=== PATIENT | female | born 1995 ===

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

== ENCOUNTER 2017-05-18 15:59 | Emergency (ER) | payer OTHER ==
[2017-05-18 16:40] VITALS: BP 111/58
[2017-05-18] MEDS ORDERED: Ibuprofen TAB* 400 MG PO ONE (16:49)
--- NOTE | 2017-05-18 16:55 | UC ---
Hand/Wrist HPI - HPI Summary HPI Summary: Pt c/o right thumb pain and swelling. 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 - History Of Current Complaint Hx Obtained From: Patient Hx Last Menstrual Period: 04/29/17 ?: No Onset/Duration: Sudden Onset, Still Present Severity Initially: Moderate Severity Currently: Moderate Pain Intensity: 4 Character Of Pain: Dull, Aching, Throbbing, Stiffness Aggravating Factor(s): Movement Alleviating Factor(s): Nothing Associated Signs And Symptoms: Positive: Swelling <Fay Feldman NP - Last Filed: 05/18/17 17:38> <Kelley Tripp - Last Filed: 05/18/17 18:16> - History Of Current Complaint Chief Complaint: UCUpperExtremity Stated Complaint: RIGHT WRIST/THUMB INJ Time Seen by Provider: 05/18/17 16:31 - Allergies/Home Medications Allergies/Adverse Reactions: Allergies Allergy/AdvReac Type Severity Reaction Status Date / Time No Known Allergies Allergy Verified 05/18/17 16:40 PMH/Surg Hx/FS Hx/Imm Hx Previously Healthy: Yes - Surgical History Surgical History: None - Family History Known Family History: Positive: Hypertension - Social History Occupation: Student Lives: Dormitory/Roommates Alcohol Use: Occasionally Substance Use Type: None Smoking Status (MU): Never Smoked Tobacco Have You Smoked in the Last Year: No - Immunization History Hx Tetanus, Diphtheria Vaccination: Yes Vaccination Up to Date: Yes <Fay Feldman NP - Last Filed: 05/18/17 17:38> Review of Systems Constitutional: Negative Skin: Bruising Eyes: Negative ENT: Negative Respiratory: Negative Cardiovascular: Negative Gastrointestinal: Negative Genitourinary: Negative Motor: Decreased ROM - right thumb Neurovascular: Negative Musculoskeletal: Arthralgia - right thumb, Decreased ROM - right thumb, Myalgia - right thumb Neurological: Negative Psychological: Negative Is Patient Immunocompromised?: No All Other Systems Reviewed And Are Negative: Yes <Fay Feldman NP - Last Filed: 05/18/17 17:38> Physical Exam Triage Information Reviewed: Yes Appearance: Well-Appearing Vital Signs: Initial Vital Signs Temp 97.9 F 04/02/18 16:32 Pulse 87 05/18/17 16:32 Resp 17 05/18/17 16:32 BP 111/58 05/18/17 16:32 Pulse Ox 100 05/18/17 16:32 Vital Signs Reviewed: Yes Eye Exam: Normal ENT Exam: Normal Neck exam: Normal Respiratory Exam: Normal Cardiovascular Exam: Normal Musculoskeletal Exam: Other Musculoskeletal: Positive: Strength Limited @, ROM Limited @, Edema @ - right thumb Neurological Exam: Normal Psychological Exam: Normal Skin Exam: Other - bruising right thumb <Fay Feldman NP - Last Filed: 05/18/17 17:38> Vital Signs: Initial Vital Signs Temp 97.9 F 05/18/17 16:32 Pulse 87 05/18/17 16:32 Resp 17 05/18/17 16:32 BP 111/58 05/18/17 16:32 Pulse Ox 100 05/18/17 16:32 <Kelley Tripp - Last Filed: 05/18/17 18:16> Diagnostics - Radiology No standard instances Radiology Interpretation Completed By: Radiologist - metacarpal. No other acute fractures are evident. There is mild diffuse soft tissue swelling. Limited imaging of the wrist shows no scaphoid injury. IMPRESSION: FIRST METACARPAL FRACTURE. <Fay Feldman NP - Last Filed: 05/18/17 17:38> Hand/Wrist Course/Dx - Differential Dx/Diagnosis Differential Diagnosis/HQI/PQRI: Fracture Provider Diagnoses: right thumb fracture. metacarpal. No other acute fractures are evident. There is mild diffuse soft tissue. swelling. Limited imaging of the wrist shows no scaphoid injury. IMPRESSION: FIRST METACARPAL FRACTURE. <Fay Feldman NP - Last Filed: 05/18/17 17:38> Discharge - Sign-Out/Discharge Documenting (check all that apply): Discharge - Billing Disposition and Condition Condition: STABLE Disposition: HOME <Fay Feldman NP - Last Filed: 05/18/17 17:38> - Billing Disposition and Condition Condition: STABLE Disposition: HOME <Kelley Tripp - Last Filed: 05/18/17 18:16> - Discharge Plan Condition: Stable Disposition: HOME Patient Education Materials: Thumb Fracture (ED) Forms: *Physical Education Release, *School Release Referrals: [facility] [Outside] Alex Anderson MD [Medical Doctor] - As Soon As Possible Non Staff,Doctor [Primary Care Provider] - Cherelle Guerrier MD [Medical Doctor] - As Soon As Possible Additional Instructions: Please follow up immediately with an orthopedic provider. We recommend that you follow up with a hand specialist. We have provided recommendations to two hand specialists, Dr. Anderson and Dr. Guerrier. Attestation Statement User Type: Provider - I was available for consult. This patient was seen by the MARIBEL. The patient was not presented to, seen by, or examined by me. -Emperatriz <Kelley Tripp - Last Filed: 05/18/17 18:16>
--- NOTE | 2017-05-18 17:08 | RAD ---
INDICATION: Thumb pain. COMPARISON: None TECHNIQUE: AP, lateral, and oblique views were obtained. FINDINGS: There is a transverse, mildly displaced fracture of the base of the first metacarpal. No other acute fractures are evident. There is mild diffuse soft tissue swelling. Limited imaging of the wrist shows no scaphoid injury. IMPRESSION: FIRST METACARPAL FRACTURE.
== END 2017-05-18 17:27 | disposition home or self-care (01) ==
LOC: UCCORT 15:59
DX: S62.231A Other displaced fracture of base of first metacarpal bone, right hand, initial encounter for closed fracture (principal); X50.0XXA Overexertion from strenuous movement or load, initial encounter; Y93.64 Activity, baseball; Y92.328 Other athletic field as the place of occurrence of the external cause
CPT/HCPCS: 99213; A9270-GY; G0463

== ENCOUNTER 2018-01-03 10:01 | Emergency (ER) | payer OTHER ==
[2018-01-03 11:33] VITALS: BP 113/62
--- NOTE | 2018-01-03 11:42 | UC ---
UC General HPI - HPI Summary HPI Summary: ill for over a week with sinus pain, pressure and congestion. much worse past 2 days. yellow nasal drainage. no relief with otc tx. - History of Current Complaint Chief Complaint: UCGeneralIllness Stated Complaint: SINUSES,HEADACHE,EARS Time Seen by Provider: 01/03/18 11:37 Hx Obtained From: Patient Hx Last Menstrual Period: 12/18/17 Onset/Duration: Gradual Onset Timing: Constant Pain Intensity: 0 Associated Signs & Symptoms: Positive: Cough - from post nasal drip - Allergy/Home Medications Allergies/Adverse Reactions: Allergies Allergy/AdvReac Type Severity Reaction Status Date / Time No Known Allergies Allergy Verified 01/03/18 11:33 PMH/Surg Hx/FS Hx/Imm Hx Previously Healthy: Yes - Surgical History Surgical History: None - Family History Known Family History: Positive: Hypertension - Social History Occupation: Student Lives: Dormitory/Roommates Alcohol Use: Occasionally Substance Use Type: None Smoking Status (MU): Never Smoked Tobacco Have You Smoked in the Last Year: No - Immunization History Hx Tetanus, Diphtheria Vaccination: Yes Vaccination Up to Date: Yes Review of Systems All Other Systems Reviewed And Are Negative: Yes Constitutional: Positive: Chills Skin: Positive: Negative Eyes: Positive: Negative ENT: Positive: Ear Ache, Nasal Discharge, Sinus Congestion, Sinus Pain/ Tenderness Respiratory: Positive: Cough Cardiovascular: Positive: Negative Gastrointestinal: Positive: Negative Genitourinary: Positive: Negative Motor: Positive: Negative Neurovascular: Positive: Negative Musculoskeletal: Positive: Negative Neurological: Positive: Negative Psychological: Positive: Negative Is Patient Immunocompromised?: No Physical Exam Triage Information Reviewed: Yes Appearance: Well-Appearing Vital Signs: Initial Vital Signs Temp 97.8 F 01/03/18 11:31 Pulse 100 01/03/18 11:31 Resp 18 01/03/18 11:31 BP 113/62 01/03/18 11:31 Pulse Ox 100 01/03/18 11:31 Vital Signs Reviewed: Yes Eyes: Positive: Conjunctiva Clear ENT: Positive: Pharynx normal, Nasal congestion, TMs normal, Sinus tenderness. Negative: Nasal drainage Neck: Positive: Supple, Nontender, No Lymphadenopathy Respiratory: Positive: Lungs clear, Normal breath sounds Cardiovascular: Positive: RRR, No Murmur Abdomen Description: Positive: Nontender, No Organomegaly, Soft Bowel Sounds: Positive: Present Musculoskeletal: Positive: ROM Intact Neurological: Positive: Alert Psychological: Positive: Age Appropriate Behavior Skin Exam: Normal Course/Dx - Course Course Of Treatment: ill for over a week. much worse x 2 days thus will cover for bacterial infection. - Differential Dx - Multi-Symptom Provider Diagnoses: sinusitis Discharge - Sign-Out/Discharge Documenting (check all that apply): Patient Departure All imaging exams completed and their final reports reviewed: No Studies - Discharge Plan Condition: Stable Disposition: HOME Prescriptions: Amoxicillin/Clavulanate TAB* [Augmentin TAB 875*] 875 mg PO BID 10 Days #20 tab Patient Education Materials: Sinusitis (ED) Referrals: [facility] [Outside] Additional Instructions: follow up [facility] if not improving in 5-7 days or sooner if worse. may f/u primary car at home as well. - Billing Disposition and Condition Condition: STABLE Disposition: Home - Attestation Statements Provider Attestation: Per institutional requirements, I have reviewed the chart, however, I was not consulted specifically or made aware of this patient by the midlevel provider. I did not personally evaluate, interact with , or disposition this patient.
== END 2018-01-03 11:46 | disposition home or self-care (01) ==
LOC: UCCORT 10:01
DX: J32.9 Chronic sinusitis, unspecified (principal)
CPT/HCPCS: 99212; G0463